=== PATIENT | male | born 1960 | race Caucasian/White ===

== ENCOUNTER 2017-06-15 08:22 | Emergency (ER) | payer OTHER ==
[~2017-06-15] VITALS: Ht 157.5 cm; Wt 92.8 kg
[~2017-06-15 08:22] MED LIST: ALBU1AER INH; LEVO100T4 PO
[2017-06-15 08:29] VITALS: BP 141/81; PULSE 84; RESP 18; TEMP 98.2; O2SAT 94
[2017-06-15] MEDS ORDERED: LEVO112T2 PO (08:43)
[2017-06-15] MEDS ORDERED: ADVA45AE INH (08:43)
[2017-06-15] MEDS ORDERED: ALBUAER3 INH (08:43)
[2017-06-15] MEDS ORDERED: IBUP1TAB7 PO (08:43)
[2017-06-15] MEDS ORDERED: CEPH-460 PO (09:04)
[2017-06-15] MEDS ORDERED: PERC5TAB12 PO (09:04)
--- NOTE | 2017-06-15 09:05 | PD ---
HPI Chief Complaint: Facial Pain or Swelling Time Seen by Provider: 08:38 Travel History International Travel<30 days: No Contact w/Intl Traveler<30days: No Traveled to known affect area: No History of Present Illness HPI This 13-year-old male is complaining of pain in his jaw. He says he is having quite severe pain in the front of his face and he feels like a geropsychiatric. He saw a dentist yesterday and the dentist thought he might be suffering from bruxism. He gave him prescription for ibuprofen which he has taken without relief. He has noted that his lower teeth seem to be loose and he has one tooth that was crowned that which has become discolored. He's been having some pain for several days but it seemed to get be getting swollen and more painful. He says his father of cancer of the tongue. He does not smoke. PFSH Past Medical History Cancer: No Cardiovascular Problems: No Diabetes: No Endocrine: Yes Genitourinary: No Hepatitis: No Hiatal Hernia: No Immune Disorder: No Musculoskeletal: No Neurologic: No Psychiatric: No Reproductive: No Respiratory: No Thyroid Disease: Yes (HYPOTHYROIDISM) Influenza Vaccination: No ?: Not Past Surgical History Abdominal Surgery: No AICD: No Cardiac Surgery: No Ear Surgery: No Endocrine Surgery: No Eye Surgery: No Genitourinary Surgery: No Gynecologic Surgery: No Joint Replacement: No Oral Surgery: Yes (TONSILLECTOMY) Pacemaker: No Thoracic Surgery: No Tonsillectomy: Yes Other Surgery: Yes Social History Alcohol Use: No Tobacco Use: No Substance Use: No Allergies-Medications (Allergen,Severity, Reaction): Coded Allergies: No Known Allergies (Unverified Adverse Reaction, Unknown, 06/15/17) Reported Meds & Prescriptions Reported Meds & Active Scripts Active Reported Advair Hfa 12 GM Inh (Fluticasone-Salmeterol 12 GM Inh) 45-21 Mcg/Act Aer 2 Puff INH BID Proair Hfa 8.5 GM Inh (Albuterol Sulfate) 90 Mcg/Act Aer 1 Puff INH Q4H PRN 108 mcg/actuation Levothyroxine (Levothyroxine Sodium) 112 Mcg Tab 112 Mcg PO DAILY Ibuprofen 800 Mg Tab 800 Mg PO Q6HR PRN Review of Systems General / Constitutional: No: Fever, Chills Eyes: No: Diploplia, Blurred Vision HENT: Positive: Dental Difficulties, No: Sore Throat Cardiovascular: No: Chest Pain or Discomfort, Palpitations Respiratory: No: Cough, Shortness of Breath Gastrointestinal: No: Vomiting, Diarrhea Genitourinary: No: Frequency Skin: No Rash Physical Exam Narrative Well-developed male SKIN: Focused skin assessment warm/dry. HEAD: Atraumatic. Normocephalic. EYES: Pupils equal and round. No scleral icterus. No injection or drainage. ENT: No nasal bleeding or discharge. Mucous membranes pink and moist. Posterior pharynx is negative. The front teeth are extremely tender and not obviously loose. There is one which is discolored. There is some tenderness in the sublingual area NECK: Trachea midline. No JVD. . GASTROINTESTINAL: Abdomen soft, non-tender, nondistended. Hepatic and splenic margins not palpable. MUSCULOSKELETAL: No obvious deformities. No clubbing. No cyanosis. No edema. NEUROLOGICAL: Awake and alert. No obvious cranial nerve deficits. Motor grossly within normal limits. Normal speech. PSYCHIATRIC: Appropriate mood and affect; insight and judgment normal. Data Data Last Documented VS Vital Signs Date Time Temp Pulse Resp B/P (MAP) Pulse Ox O2 Delivery O2 Flow Rate FiO2 06/15/17 08:29 98.2 84 18 141/81 (101) 94 MDM Medical Decision Making Medical Screen Exam Complete: Yes Emergency Medical Condition: Yes Medical Record Reviewed: Yes Differential Diagnosis Differential includes sialoadenitis, TMJ, osteonecrosis Narrative Course She is currently seeing a dentist and should complete the evaluation of the Abilio. I have recommended that if the dentist does not find problems that he should see ENT. He does seem that the sublingual glands or prominent and quite tender and he may have some sialoadenitis. I will prescribe Keflex and some Lortab for pain. He says he has not slept for 3 days due to the pain. Diagnosis Primary Impression: Acute pain of mouth Additional Impression: possible sialoadenitis Scripts Oxycodone-Acetaminophen (Percocet) 5-325 mg Tab 1-2 TAB PO Q6H Y for PAIN for 15 Days, TAB 0 Refills Prov: Ciro Meneses MD 06/15/17 Cephalexin (Keflex) 500 Mg Cap 500 MG PO Q6H for Infection for 7 Days, #28 CAP 0 Refills Prov: Ciro Meneses MD 06/15/17 Disposition: 01 DISCHARGE HOME Condition: Stable iCro Meneses MD Jun 15, 2017 09:05
== END 2017-06-15 09:24 | disposition home or self-care (01) ==
LOC: PHED 08:22
DX: R68.84 Jaw pain (principal); E03.9 Hypothyroidism, unspecified
CPT/HCPCS: 99284